=== PATIENT | male | born 1975 | race African-American/Black ===

== ENCOUNTER 2017-11-21 08:39 | Emergency (ER) | payer OTHER ==
[2017-11-21 08:51] VITALS: BP 124/76
--- NOTE | 2017-11-21 09:20 | UC ---
Respiratory Complaint HPI - HPI Summary HPI Summary: 42 yo BM c/o sore throat associated with f/c/bodyaches and mild cough - History of Current Complaint Chief Complaint: UCRespiratory Stated Complaint: COUGH BODYACHES TIRED Time Seen by Provider: 11/21/17 08:54 Hx Obtained From: Patient Onset/Duration: Gradual Onset Severity Initially: Moderate Pain Intensity: 6 - Allergies/Home Medications Allergies/Adverse Reactions: Allergies Allergy/AdvReac Type Severity Reaction Status Date / Time No Known Allergies Allergy Verified 11/21/17 08:51 Home Medications: Home Medications Ibuprofen 800 mg PO Q6H PRN 11/21/17 [History Confirmed 11/21/17] Loratadine 10 mg PO DAILY PRN 11/21/17 [History Confirmed 11/21/17] amLODIPine TAB* [Norvasc 5 mg TAB*] 5 mg PO DAILY 11/21/17 [History Confirmed ] PMH/Surg Hx/FS Hx/Imm Hx - Additional Past Medical History Additional PMH: none - Surgical History Surgical History: None - Social History Alcohol Use: Occasionally Substance Use Type: None Smoking Status (MU): Never Smoked Tobacco Type: Cigarettes, eCigarettes Amount Used/How Often: very rarely Review of Systems Constitutional: Fever, Chills, Fatigue Skin: Negative Eyes: Negative ENT: Sore Throat Respiratory: Cough Cardiovascular: Negative Gastrointestinal: Negative Genitourinary: Negative Motor: Negative Neurovascular: Negative Musculoskeletal: Myalgia Neurological: Negative Psychological: Negative Is Patient Immunocompromised?: No All Other Systems Reviewed And Are Negative: Yes Physical Exam Triage Information Reviewed: Yes Appearance: No Pain Distress Vital Signs: Initial Vital Signs Temp 36.6 C 11/21/17 08:45 Pulse 67 11/21/17 08:45 Resp 16 11/21/17 08:45 BP 124/76 11/21/17 08:45 Pulse Ox 97 11/21/17 08:45 Eye Exam: Normal ENT Exam: Normal ENT: Positive: Pharyngeal erythema, Tonsillar swelling. Negative: Tonsillar exudate Dental Exam: Normal Neck exam: Normal Neck: Positive: Tenderness @, Enlarged Nodes @ - right cervical LAD >Left Respiratory Exam: Normal Respiratory: Positive: Lungs clear Cardiovascular Exam: Normal Abdominal Exam: Normal Musculoskeletal Exam: Other - diffuse myalgia Neurological Exam: Normal Psychological Exam: Normal Skin Exam: Normal UC Diagnostic Evaluation - Laboratory O2 Sat by Pulse Oximetry: 97 Respiratory Course/Dx - Course Course Of Treatment: negative for rapid flu and rapid strep, but still may be different strain of influenza virus, sx may worsen before improvement, supportive tx advised, rest PO hydration - Differential Dx/Diagnosis Provider Diagnoses: viral syndrome, pharyngitis Discharge - Discharge Plan Condition: Stable Disposition: HOME Patient Education Materials: Pharyngitis (ED), Viral Syndrome (ED) Referrals: Swetha Latham MD [Primary Care Provider] - Additional Instructions: as tolerated
== END 2017-11-21 09:54 | disposition home or self-care (01) ==
LOC: UCEAST 08:39
DX: B34.9 Viral infection, unspecified (principal); J02.9 Acute pharyngitis, unspecified; Z72.0 Tobacco use
CPT/HCPCS: 87502; 87651; 99211; G0463

== ENCOUNTER 2018-05-02 12:28 | Emergency (ER) | payer OTHER ==
[2018-05-02 12:38] VITALS: BP 119/85
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
== END 2018-05-02 14:45 | disposition home or self-care (01) ==
LOC: UCEAST 12:28
DX: S16.1XXA Strain of muscle, fascia and tendon at neck level, initial encounter (principal); I10 Essential (primary) hypertension; J45.909 Unspecified asthma, uncomplicated; V49.9XXA Car occupant (driver) (passenger) injured in unspecified traffic accident, initial encounter; Y92.488 Other paved roadways as the place of occurrence of the external cause
CPT/HCPCS: 72050; 99212; G0463

== ENCOUNTER 2018-11-27 08:25 | Emergency (ER) | payer OTHER ==
[2018-11-27 10:11] LABS: Influenza A Molecular NEGATIVE (Negative); Influenza B Molecular NEGATIVE (Negative)
--- NOTE | 2018-11-27 10:12 | UC ---
Throat Pain/Nasal Alfredo HPI - HPI Summary HPI Summary: 43 y/o male presents to the urgent care c/o PT c/o sore throat, bodyaches, fatigue, headache that started this past Saturday. - History of Current Complaint Chief Complaint: UCGeneralIllness Stated Complaint: SORE THROAT Time Seen by Provider: 11/27/18 10:09 Hx Obtained From: Patient Onset/Duration: Gradual Onset, Lasting Days - 4 days, Still Present Severity: Mild Pain Intensity: 6 Pain Scale Used: 0-10 Numeric Cough: Sputum Appears - yellowish Associated Signs & Symptoms: Positive: Wheezing - mild, Sinus Discomfort, Nasal Discharge - yellowish. Negative: Fever - Epiglottits Risk Factors Epiglottis Risk Factors: Negative - Allergies/Home Medications Allergies/Adverse Reactions: Allergies Allergy/AdvReac Type Severity Reaction Status Date / Time No Known Allergies Allergy Verified 11/27/18 08:40 PMH/Surg Hx/FS Hx/Imm Hx Previously Healthy: Yes Respiratory History: Asthma - Surgical History Surgical History: None - Family History Known Family History: Positive: Hypertension, Diabetes - Social History Occupation: Employed Full-time Lives: With Family Alcohol Use: Occasionally Substance Use Type: None Smoking Status (MU): Current Some Day Smoker Type: Cigarettes, eCigarettes Amount Used/How Often: very rarely Review of Systems All Other Systems Reviewed And Are Negative: Yes Constitutional: Positive: Other - body aches Skin: Positive: Negative Eyes: Positive: Negative ENT: Positive: Sore Throat, Nasal Discharge - yellowish, Sinus Congestion, Sinus Pain/Tenderness Respiratory: Positive: Cough - productive with yellowish phlegm Cardiovascular: Positive: Negative Gastrointestinal: Positive: Negative Genitourinary: Positive: Negative Motor: Positive: Negative Neurovascular: Positive: Negative Musculoskeletal: Positive: Myalgia Neurological: Positive: Headache Psychological: Positive: Negative Is Patient Immunocompromised?: No Physical Exam - Summary Physical Exam Summary: Vital Signs Reviewed: Yes General: well developed, well nourished male sitting in the examining table w/o any apparent distress Eyes: Positive: Conjunctiva Clear - PERRLA, EOMI, fundi grossly normal ENT: Positive: Normal ENT inspection, Hearing grossly normal, Pharynx normal, Nasal congestion - edematous and erythematous nasal mucosa, Nasal drainage - yellowish drainage, TMs normal. Negative: Tonsillar swelling, Tonsillar exudate Neck: Positive: Supple, Nontender, No Lymphadenopathy Respiratory: no orthopnea or dyspnea. Able to speak in full sentences, no retractions or accessory muscle use, no tripod position, stridor, or head bobbing. Positive breath sounds bilaterally. Mild wheezing on the left posterior left lung, no rhonchi on b/L lungs, no crackles or rales. Cardiovascular: Positive: RRR, No Murmur, Pulses Normal, Brisk Capillary Refill Abdomen Description: Positive: Nontender, No Organomegaly, Soft. Negative: CVA Tenderness (R), CVA Tenderness (L) Bowel Sounds: Positive: Present Musculoskeletal Exam: Normal Musculoskeletal: Positive: Strength Intact, ROM Intact, No Edema Neurological Exam: Normal Psychological Exam: Normal Skin Exam: Normal Triage Information Reviewed: Yes Vital Signs: Initial Vital Signs Temp 98.4 F 11/27/18 08:41 Pulse 77 11/27/18 08:41 Resp 16 11/27/18 08:41 BP 118/76 11/27/18 08:41 Pulse Ox 99 11/27/18 08:41 Throat Pain/Nasal Course/Dx - Course Course Of Treatment: Pt w/ URI and mild wheeaing in the left posterior lung, no rhonchi, crackles or rales B/l lung on examination. O2Sat:99%. Pt given Duoneb Treatment to alleviate symptoms. Pt tolerated well treatment and lungs improved, and wheezing resolved. Patient Prednisone taper dose, Albuterol inhlaer and give Aerochamber. Pt advsed to continue with Robitussin PO to alleviate cough. The patient was recommended to increase fluid intake. Take medications as recommended. Pt advised to returned to the clinic or f/u w/ his PCP if symptoms do not improve. All D/C instructions explained. Patient understood and agree w / plan of care. Pt left clinic hemodynamically stable , A&OX3 - Differential Dx/Diagnosis Differential Diagnosis/HQI/PQRI: Influenza, Laryngitis, Pharyngitis, Sinusitis, URI, Other - beonchitis, asthma exacerbation Provider Diagnosis: Upper respiratory infection, Wheezing Discharge - Sign-Out/Discharge Documenting (check all that apply): Patient Departure - d/c home All imaging exams completed and their final reports reviewed: No Studies - Discharge Plan Condition: Stable Disposition: HOME Prescriptions: Albuterol HFA INHALER* [Ventolin HFA Inhaler*] 1 - 2 puff INH Q6H PRN #1 mdi PRN Reason: Wheezing predniSONE TAB* [Deltasone 20 MG TAB*] 20 mg PO DAILY #11 tab Patient Education Materials: Asthma (DC), Upper Respiratory Infection (ED) Forms: *Work Release Referrals: Swetha Latham MD [Primary Care Provider] - 2 Days Additional Instructions: 1- Take Prednisone PO taper dose as directed starting tomorrow. First loading dose given today. 2-Use the albuterol inhaler w/ the aerochamber to alleviate SOB, and wheezing as directed . Increase fluid intake, rest and eat well. 3- If symptoms do not improve or worsen or your develop SOB with fever and severe wheezing please go immediately to the ER further evaluation and treatment. 4- F/u with your PCP in 2-3 days if symptoms are not improving for further management on your Asthma 5- Your BP is elevated today. please decrease salt in your diet, monitor BP and if it continues to be elevated please f/u with your PCP for further management. - Billing Disposition and Condition Condition: STABLE Disposition: Home
[2018-11-27] MEDS ORDERED: Albuterol 2.5 MG/3 ML NEB.SOL* (0.083%) INH ONE (10:35)
[2018-11-27 10:56] VITALS: BP 143/75
== END 2018-11-27 11:28 | disposition home or self-care (01) ==
LOC: UCEAST 08:25
DX: J06.9 Acute upper respiratory infection, unspecified (principal); R06.2 Wheezing; F17.210 Nicotine dependence, cigarettes, uncomplicated; J45.909 Unspecified asthma, uncomplicated
CPT/HCPCS: 87651; 99212; G0463